=== PATIENT | female | born 1940 | race Caucasian/White ===

== ENCOUNTER 2023-11-24 12:49 | Inpatient (IN) | payer MEDICARE, OTHER, SELFPAY ==
[2023-11-24 08:09] VITALS: BP 135/93
[2023-11-24 08:13] VITALS: BP 135/93; BMI 25.1
[2023-11-24] MEDS: TYLENOL/FEVERALL 650 MG RECTAL (08:27)
--- NOTE | 2023-11-24 09:00 | ED.GENMED ---
History of Present Illness
General
Chief Complaint: Fever
Time Seen by Provider: 11/24/23 08:07
History of Present Illness
History of Present Illness:
83-year-old female with history of hypertension, hyperlipidemia, hypothyroidism presenting from nursing facility for fever and hypoxia. Patient arrives by medics, was hypoxic to the 80s, is not on home O2. Patient limited historian, cough without
difficulty breathing. Denies chest pain. Denies abdominal pain. Unknown sick contacts. No additional history obtained at this time
Phy Exam
Physical Exam
Physical Exam:
General: Cachectic, dry mucous membranes
HEENT: protecting airway
Neck: appears supple
CV: Normal heart rate, regular rhythm, no evidence of cyanosis
Resp: No accessory muscle use, on supplemental O2, rhonchorous breath sounds bilaterally, wet cough
Abd: Soft and non-distended, no tenderness to palpation
Extremities: No deformities, no swelling, no erythema, pulses and sensation intact
Neuro: alert, no focal neurologic deficit
: deferred
Rectal: deferred
Psych: Normal affect
Skin: Intact
Course
Orders/Labs/Results
Orders:
Orders
11/24/23 08:06
Acetaminophen [Tylenol/Feverall] 650 mg .ROUTE .STK-MED ONE
11/24/23 08:16
Straight cath- Treatment ONCE
0.9% Sodium Chloride 1000 ml [Nss] 1,000 ml IV BOLUS
Acetaminophen [Tylenol/Feverall] 650 mg RECTAL NOW STA
11/24/23 08:17
CR Chest - 2 Views Urgent
Comment:
Reason For Exam: cough, hypoxia
11/24/23 08:32
COVID-19 Antigen Urgent
Source: Nasal Swab
Complete Blood Count/With Diff Urgent
Comprehensive Metabolic Panel Urgent
Lactic Acid Q4H
Comment: CANCEL 2nd LACTIC ACID IF 1st LACTIC ACID IS LESS THAN 2
PTT Urgent
Prothrombin Time Urgent
Troponin I Urgent
Blood Culture Urgent
ABHAY Source: Blood/Venous
Specimen Description:
Influenza A+B Rapid Molecular Urgent
ABHAY Source: Nasal Swab
Specimen Description:
11/24/23 08:33
Urinalysis Reflex To Culture Urgent
Date Specimen was Collected: 11/24/23
Time Specimen was Collected: 08:31
11/24/23 09:54
Cefepime HCl [Maxipime] 2,000 mg IV NOW STA
Vancomycin 1 Gram/200 ml [Vancocin] 1 gram in 200 ml IV NOW
11/24/23 11:05
0.9% Sodium Chloride 1000 ml [Nss] 1,000 ml IV BOLUS
11/24/23 12:30
Lactic Acid Q4H
Comment: CANCEL 2nd LACTIC ACID IF 1st LACTIC ACID IS LESS THAN 2
Abnormal Lab Results
11/24/23
08:32
WBC 17.4 H 10^3/uL
(4.8-10.8)
RBC 2.64 L 10^6/uL
(4.20-5.40)
Hgb 9.7 L g/dL
(12.0-16.0)
Hct 28.4 L %
(37.0-47.0)
MCV 107.6 H fL
(81.0-99.0)
MCH 36.7 H pg
(27.0-31.0)
RDW 25.5 H %
(11.5-14.5)
MPV 10.6 H fL
(7.4-10.4)
Abs Immat Gran (auto) 0.2 H 10^3/uL
(0-0.05)
Absolute Neuts (auto) 14.2 H 10^3/uL
(1.4-6.5)
Absolute Monos (auto) 0.8 H 10^3/uL
(0.1-0.6)
Immature Gran % 1.0 H %
(0-0.5)
Neutrophils % 81.8 H %
(42.2-75.2)
Lymphocytes % 12.4 L %
(20.5-51.1)
APTT 21.8 L Sec
(23.4-35.0)
Sodium 132 L mmol/L
(135-145)
BUN 23 H mg/dl
(7-17)
Total Bilirubin 2.7 H mg/dl
(0.2-1.3)
Total Protein 5.4 L g/dl
(6.3-8.2)
Albumin 3.1 L g/dl
(3.5-5.0)
11/24/23 08:32
11/24/23 08:32
Vital Signs
Initial and Last Documented VS:
Initial Vital Signs
Pulse Ox
97
11/24/23 08:03
Last Documented Vital Signs
Temp Pulse Resp BP Pulse Ox
98.8 F 76 19 106/60 99
11/24/23 10:17 11/24/23 10:05 11/24/23 10:05 11/24/23 09:01 11/24/23 10:17
MDM/Problems Addressed
MDM/Problems Addressed:
83-year-old female with history of hypertension, hyperlipidemia, hypothyroidism presenting to the emergency department for hypoxia. Vital signs on arrival significant for fever and tachypnea, on supplemental O2.
On exam, patient stable on supplemental O2, tachypneic with rhonchorous breath sounds bilaterally. In the setting of a fever and respiratory symptoms, concern for sepsis from pulmonary source. Plan for laboratory analysis including lactic acid and
culture. Will obtain chest x-ray imaging. Will start patient on IV fluids. Tylenol administered for fever.
09:50 -chest x-ray is consistent with a right-sided pneumonia. Broad-spectrum antibiotics ordered.
11:00 -labs consistent with leukocytosis, pending lactic acid. Will continue IV fluids. Plan for admission in setting of pneumonia with presenting hypoxia.
*Critical Care Note
Total Time (30-74mins, 75-104mins- exclusive of procedures): Not Applicable
ED Attending Note
-
Portions of this chart may have been created with voice recognition software.� Occasional wrong word or��sound alike� substitutions may have occurred due to the inherent limitations of voice recognition software.
Discharge Plan
Departure
Prescriptions:
No Action
furosemide [Lasix] 40 mg Tablet
40 mg PO DAILY
acetaminophen [Tylenol] 325 mg Tablet
650 mg PO Q6HPRN PRN (Reason: MILD PAIN)
pravastatin 40 mg Tablet
40 mg PO HS
alendronate [Fosamax] 70 mg Tablet
70 mg PO QWEEK
glipizide 5 mg Tablet Extended Release 24hr
5 mg PO DAILY
amlodipine [Norvasc] 5 mg Tablet
5 mg PO DAILY
levothyroxine [Synthroid] 50 mcg Tablet
50 mcg PO DAILY
ferrous sulfate 325 mg (65 mg iron) Tablet
325 mg PO DAILY
albuterol sulfate [ProAir HFA] 90 mcg/actuation Hfa Aerosol Inhaler
2 puff INHALATION R Q6HPRN PRN (Reason: SOB)
losartan-hydrochlorothiazide 50-12.5 mg Tablet
1 tab PO DAILY
insulin lispro [Humalog Pen] 100 unit/mL Insulin Pen
1 sliding scale dose SC AC
escitalopram oxalate [Lexapro] 10 mg Tablet
10 mg PO DAILY
metformin 500 mg Tablet Extended Release 24hr
500 mg PO BID
calcium carbonate-vitamin D3 [Calcium 500 + D] 500 mg-10 mcg (400 unit) Tablet
1 tab PO DAILY
Dulera 100-5 mcg/actuation Hfa Aerosol Inhaler
2 puff INHALATION R BID
Referrals:
Ramirez Phillips MD [Family Provider] -
Interventions
Interventions:
*Risk Screen - Suicide Last Done: 11/24/23 08:13
*General Assessment Last Done: 11/24/23 08:13
*Neglect/Abuse Screening Last Done: 11/24/23 08:13
ED- Fall Risk Assessment Last Done: 11/24/23 09:00
*ED COVID-19 Vaccine History Last Done: 11/24/23 08:13
ED- Neurological Assessment Last Done: 11/24/23 09:00
ED-Skin Assessment Last Done: 11/24/23 09:00
Discharge Date and Time
Print Language: GEORGIAN
[2023-11-24 09:01] VITALS: BP 106/60
[2023-11-24] MEDS: NSS 1000 IV ×2 (09:06→11:19)
[2023-11-24 09:24] LABS: Urine Albumin Negative (Neg - Trace); Urine Bilirubin Negative (Negative); Urine Character Clear (Clear); Urine Color Yellow; Urine Glucose Negative (Negative); Urine Ketone Negative (Negative); Urine Leukocyte Negative (Negative); Urine Nitrite Negative (Negative); Urine Occult Blood Negative (Negative); Urine Urobilinogen 1+ (Neg - 1+)
[2023-11-24 09:27] LABS: ALT (SGPT) 11 U/L (0-35); AST (SGOT) 20 U/L (14-36); Albumin 3.1 g/dl (3.5-5.0); Alkaline Phosphatase 61 U/L (38-126); Blood Urea Nitrogen 23 mg/dl (7-17); Carbon Dioxide 29 mmol/L (22-30); Chloride 99 mmol/L (98-107); Estimated Creatinine Clearance 44 ml/min; Glucose 81 mg/dl (70-99); Potassium 3.6 mmol/L (3.5-5.1); Sodium 132 mmol/L (135-145); Total Bilirubin 2.7 mg/dl (0.2-1.3); Total Protein 5.4 g/dl (6.3-8.2); eGFR > 60.00
[2023-11-24 09:30] LABS: INR 1.16; Lactic Acid 1.8 mmol/L (0.7-2.0); PT 14.6 Sec (11.4-14.6)
[2023-11-24 09:34] LABS: COVID-19 Antigen Negative (Negative)
[2023-11-24 09:37] LABS: Troponin I 0.013 ng/ml
[2023-11-24] MEDS: MAXIPIME 2000 MG IV (09:59)
[2023-11-24] MEDS: VANCOCIN 200 IV (09:59)
[2023-11-24 10:30] LABS: % Basophils 0.1 % (0-2); % Lymphocytes 12.4 % (20.5-51.1); % Monocytes 4.7 % (1.7-9.3); % Neutrophils 81.8 % (42.2-75.2); Absolute Immature Granulocytes 0.2 10^3/uL (0-0.05); Absolute Lymphocytes 2.2 10^3/uL (1.2-3.4); Absolute Monocytes 0.8 10^3/uL (0.1-0.6); Absolute Neutrophils 14.2 10^3/uL (1.4-6.5); Hematocrit 28.4 % (37.0-47.0); Hemoglobin 9.7 g/dL (12.0-16.0); Mean Corp Hgb Conc. 34.2 g/dL (33.0-37.0); Mean Corpuscular Hgb 36.7 pg (27.0-31.0); Mean Corpuscular Volume 107.6 fL (81.0-99.0); Mean Platelet Volume 10.6 fL (7.4-10.4); Nucleated Red Blood Cells % 0.2 %; Platelet Count 161 10^3/uL (130-400); Red Blood Cell Count 2.64 10^6/uL (4.20-5.40); Red Cell Dist. Width 25.5 % (11.5-14.5); White Blood Cell Count 17.4 10^3/uL (4.8-10.8)
[2023-11-24 10:32] LABS: APTT 21.8 Sec (23.4-35.0)
--- NOTE | 2023-11-24 10:47 | PHANOTE ---
MED REC NOTE- CALLED [facility] AT [phone] [address], PATIENT MISSING PAGES 5 6 7 OF MEDICATION LIST. WAIT FOR FAX FROM [address] [address]
--- NOTE | 2023-11-24 12:35 | HPS.HSE ---
Family Physician
-
Family Physician: Ramirez Phillips MD
Chief Complaint
-
hypoxia
History of Present Illness
83yo [place]er speaking F with Hx of asthma, ITP on steroids, HUS, HTN, DM, hypothyroidism brought from [facility] with hypoxia, found leukocytosis and RUL pneumonia. Patient is demented and can not provide reliable Hx.
Medical History
Past Medical History
Past Medical History: Reports Other
Additional Past Medical History:
see above
Past Surgical History: Reports Cholecystectomy
Social History
Unable to obtain full social history at this time due to: Dementia
Family History
Family History: Not pertinent
Allergies / Home Medications
Allergies reflects when Allergies were last updated in [employer].
Home Medications with original date entered in [employer]
Allergy/Medication List:
Allergies
Allergy/AdvReac Type Severity Reaction Status Date / Time
No Known Allergies Allergy Verified 11/24/23 08:11
Home Medications
acetaminophen 325 mg tablet (Tylenol) 650 mg PO Q6HPRN PRN MILD PAIN 11/24/23
amlodipine 5 mg tablet (Norvasc) 5 mg PO DAILY 11/24/23
bisacodyl 10 mg rectal suppository (Dulcolax (bisacodyl)) 10 mg [place] DAILYPRN PRN IF NO BM AFTR MOM 11/24/23
calcium carbonate 500 mg-vitamin D3 10 mcg (400 unit) tablet (Calcium 500 + D) 1 tab PO DAILY 11/24/23
cholecalciferol (vitamin D3) 50 mcg (2,000 unit) tablet (Vitamin D3) 50 mcg PO DAILY 11/24/23
escitalopram oxalate 10 mg tablet (Lexapro) 10 mg PO DAILY 11/24/23
ferrous sulfate 325 mg (65 mg iron) tablet 325 mg PO DAILY 11/24/23
folic acid 1 mg tablet 2 mg PO DAILY 11/24/23
furosemide 40 mg tablet (Lasix) 40 mg PO DAILYPRN PRN FLUID RETENSION 11/24/23
insulin glargine 100 unit/mL subcutaneous solution (Lantus U-100 Insulin) 15 unit SC HS 11/24/23
insulin lispro 100 unit/mL subcutaneous pen 1 sliding scale dose SC AC 11/24/23
levothyroxine 50 mcg tablet (Synthroid) 50 mcg PO DAILY 11/24/23
losartan 50 mg-hydrochlorothiazide 12.5 mg tablet 1 tab PO DAILY 11/24/23
magnesium hydroxide 400 mg/5 mL oral suspension (Milk of Magnesia) 2,400 mg PO [id number] PRN CONSTIPATION 11/24/23
mometasone-formoterol HFA 100 mcg-5 mcg/actuation aerosol inhaler (Dulera) 2 puff inhalation R BID 11/24/23
pravastatin 40 mg tablet 40 mg PO HS 11/24/23
prednisone 10 mg tablet 40 mg PO DIRECTED 11/24/23
risperidone 1 mg tablet (Risperdal) 1 mg PO HS 11/24/23
vitamin A 2,400 mcg capsule 3,000 mcg PO DAILY 11/24/23
Review of Systems
-
Unable to obtain full review of systems at this time due to: Dementia
History Source: Patient
Physical Exam
Vital Signs
Vital Signs
Temp Pulse Resp BP Pulse Ox
98.8 F 79 27 106/60 100
11/24/23 10:17 11/24/23 11:30 11/24/23 11:30 11/24/23 09:01 11/24/23 11:30
Physical Exam
General: No Apparent Distress
HEENT: Moist mucous membranes
Respiratory: Clear; No Wheezes
Cardiac: S1/S2 and Regular Rhythm
GI: Soft, Non Tender and Non Distended
Musculoskeletal: No Clubbing, No Cyanosis and No Edema
Skin: Warm
Neuro: Awake, Alert, Oriented and AO x 3
Psych: Calm
Laboratory Results
-
11/24/23 08:32
11/24/23 08:32
Laboratory Results
PT 14.6 Sec (11.4-14.6) 11/24/23 08:32
INR 1.16 11/24/23 08:32
APTT 21.8 Sec (23.4-35.0) L 11/24/23 08:32
Lactic Acid Cancelled 11/24/23 12:30
Total Bilirubin 2.7 mg/dl (0.2-1.3) H 11/24/23 08:32
AST 20 U/L (14-36) 11/24/23 08:32
ALT 11 U/L (0-35) 11/24/23 08:32
Alkaline Phosphatase 61 U/L (38-126) 11/24/23 08:32
Troponin I 0.013 ng/ml 11/24/23 08:32
Data Reviewed
-
Diagnostic Radiology: Report Reviewed by me
Impression/Plan
-
A/P:
#Acute hypoxic insufficiecny 2/2 Severe RUL pneumonia with unspecified organism
Ceftriaxone/Doxy
Check sputum Cx if possible
Wean off O2
Check Legionella and S.pneumonia urinary Ag
Bcx
COVID-19 neg
#Asthma, not in exacerbations
COnt bronchodilators
Follow clinically
#DM type 2 with neuropathy
DM diet (was on regular consistency in SNF) , Insulin SS, Hgb A1c
Cont Lantus
#CHF unspecified
#Hypothyroidism
#Dementia unspecified
#Essential HTN
#Chronic constipation
#Anxiet d/o
#HLD
Chck TSH
cont home meds
Furosemide to cont PRN - watch daily weights
#Anemia
#ITP
macrocytic
check B12, folate
follow CBC
cont steroids: STARTING 11/21/23-08/16/24 TSKE 40MG DAILY, THEN 30MG DAILY ON DAY 11/28/23-12/05/23 [id number] DAILY ON DAY 12/05/23-12/12/23 THEN 10MG DAILY ON DAYS 12/12/23-12/19/23
DVT ppx Hep
Full code (as per discussion with the patient)
I have spent at least 78min admitting the patient, reviewing chart, test results. COuld not reach daughter with the number on file
[2023-11-24 15:00] VITALS: BP 112/63
[2023-11-24] MEDS: STERILE WATER FOR INJECTION 10 ML IV (15:00)
[2023-11-24] MEDS: VIBRAMYCIN 100 MG PO ×2 (15:00→21:39)
[2023-11-24] MEDS: ROCEPHIN 1000 MG IV (15:01)
[2023-11-24] MEDS: DELTASONE 40 MG PO (15:03)
--- NOTE | 2023-11-24 17:07 | PTCARENOTE ---
Pt's daughter expressed that she would like her mom discharged back to [place] as soon as possible and that they can administer IV antibiotics there;
[2023-11-24 17:28] LABS: Glucose - Point of Care 227 mg/dl (70-99)
[2023-11-24] MEDS: HEPARIN 5000 UNITS SC ×2 (17:59→23:02)
[2023-11-24] MEDS: NOVOLOG FLEXPEN-LOW RESISTANCE 2 UNITS SC (18:00)
[2023-11-24 18:12] LABS: TSH Reflex To Free T4 3.72 uIU/ml (0.47-4.68)
[2023-11-24] MEDS: SYMBICORT 80/4.5 MCG INHALER 2 PUFF INH (19:58)
[2023-11-24] MEDS: PRAVACHOL 40 MG PO (21:03)
[2023-11-24] MEDS: RISPERDAL 1 MG PO (21:03)
[2023-11-24 21:13] LABS: Glucose - Point of Care 350 mg/dl (70-99)
[2023-11-24] MEDS: VIBRAMYCIN PO (21:36)
[2023-11-24] MEDS: LANTUS 0.15 UNITS SC (21:39)
[2023-11-24] MEDS: NOVOLOG FLEXPEN 5 UNITS SC (22:20)
[2023-11-24 23:00] VITALS: BP 130/65
[2023-11-25] MEDS: SYNTHROID 50 MCG PO (05:20)
[2023-11-25 05:26] VITALS: BMI 22.8
[2023-11-25 07:45] VITALS: BP 142/58
[2023-11-25 07:49] LABS: Glucose - Point of Care 110 mg/dl (70-99)
[2023-11-25 08:03] LABS: ALT (SGPT) 11 U/L (0-35); AST (SGOT) 20 U/L (14-36); Albumin 2.7 g/dl (3.5-5.0); Alkaline Phosphatase 61 U/L (38-126); Blood Urea Nitrogen 24 mg/dl (7-17); Calcium 8.2 mg/dl (8.4-10.2); Carbon Dioxide 27 mmol/L (22-30); Chloride 105 mmol/L (98-107); Estimated Creatinine Clearance 51 ml/min; Glucose 106 mg/dl (70-99); Sodium 134 mmol/L (135-145); Total Bilirubin 1.9 mg/dl (0.2-1.3); Total Protein 4.8 g/dl (6.3-8.2); eGFR > 60.00
[2023-11-25] MEDS: SYMBICORT 80/4.5 MCG INHALER 2 PUFF INH ×2 (08:20→19:41)
[2023-11-25 09:12] LABS: Vitamin B12 663 pg/ml (239-931)
[2023-11-25 09:23] VITALS: BP 127/57; O2SAT 96
[2023-11-25 09:28] LABS: % Basophils 0.1 % (0-2); % Immature Granulocytes 0.4 % (0-0.5); % Lymphocytes 26.6 % (20.5-51.1); % Monocytes 5.9 % (1.7-9.3); Absolute Lymphocytes 2.6 10^3/uL (1.2-3.4); Absolute Monocytes 0.6 10^3/uL (0.1-0.6); Absolute Neutrophils 6.6 10^3/uL (1.4-6.5); Hemoglobin 8.3 g/dL (12.0-16.0); Mean Corp Hgb Conc. 34.6 g/dL (33.0-37.0); Mean Corpuscular Hgb 32.9 pg (27.0-31.0); Mean Corpuscular Volume 95.2 fL (81.0-99.0); Mean Platelet Volume 10.7 fL (7.4-10.4); Nucleated Red Blood Cells % 0.4 %; Platelet Count 162 10^3/uL (130-400); Red Blood Cell Count 2.52 10^6/uL (4.20-5.40); Red Cell Dist. Width 21.3 % (11.5-14.5); White Blood Cell Count 9.8 10^3/uL (4.8-10.8)
[2023-11-25 10:20] LABS: Glycohemoglobin (HgbA1c) 3.5 % (4.0-5.6)
[2023-11-25] MEDS: NOVOLOG FLEXPEN-LOW RESISTANCE SC (10:24)
[2023-11-25] MEDS: HEPARIN 5000 UNITS SC ×3 (10:25→23:44)
[2023-11-25] MEDS: HYZAAR 50-12.5 1 TAB PO (10:25)
[2023-11-25] MEDS: DELTASONE 40 MG PO (10:26)
[2023-11-25] MEDS: VIBRAMYCIN 100 MG PO ×2 (10:26→19:47)
[2023-11-25] MEDS: FEOSOL 325 MG PO (10:27)
[2023-11-25] MEDS: FOLVITE 2 MG PO (10:27)
[2023-11-25] MEDS: LEXAPRO 10 MG PO (10:27)
[2023-11-25] MEDS: NORVASC 5 MG PO (10:28)
[2023-11-25] MEDS: VITAMIN D3 (cholecalciferol) 50 MCG PO (10:28)
[2023-11-25] MEDS: OSCAL 500 + D 500 MG PO (10:28)
[2023-11-25 11:35] VITALS: BP 138/99
[2023-11-25 12:13] LABS: Glucose - Point of Care 155 mg/dl (70-99)
--- NOTE | 2023-11-25 12:32 | CM ---
Addendum entered by Ching Harrison 11/25/23 12:42:
CM spoke with Domenico from [facility], reviewed therapy notes, confirmed patient is at baseline, will accept return of LTC resident when stable for discharge.
Original Note:
CM reviewed chart, patient LTC resident from [facility]. Referral placed in [facility], [facility] confirmed they can accept LTC resident back when clear for discharge. Per PT note, patient ambulating with RW, PT/OT recommending no skilled need as
patient appears to be at baseline. Patient PCP Ramirez Phillips, pharmacy [facility]. CM will continue to follow for all discharge planning needs.
Plan; return to [facility] LT when medically stable.
[2023-11-25] MEDS: NOVOLOG FLEXPEN-LOW RESISTANCE 1 UNITS SC (13:36)
[2023-11-25] MEDS: STERILE WATER FOR INJECTION 10 ML IV (13:37)
[2023-11-25] MEDS: ROCEPHIN 1000 MG IV (13:38)
--- NOTE | 2023-11-25 13:42 | PTOTSP ---
Dysphagia Evaluation
Patient is at an elevated risk for dysphagia given current respiratory status (i.e., accessory muscle use when breathing) while admitted with severe RUL PNA, with PMH of dementia, and given missing dentition (few upper teeth with no visible molars).
Oral stage differences noted (i.e., prolonged but functional chewing/oral transfers). No immediate coughing observed. Cannot rule out silent aspiration bedside.
Recommend:
1. Regular (order soft/moist foods), Thin Liquids
2. Medications - as best tolerated
3. Strategies: upright to 90 degrees, small sips/bites, slow rate, upright to 30 degrees after PO intake
4. Oral care 3x daily
5. Video swallow study to rule out dysphagia/silent aspiration as cause of current right sided PNA
[2023-11-25 15:45] VITALS: BP 114/76
[2023-11-25 17:30] LABS: Glucose - Point of Care 365 mg/dl (70-99)
[2023-11-25] MEDS: NOVOLOG FLEXPEN-LOW RESISTANCE 5 UNITS SC (17:33)
--- NOTE | 2023-11-25 18:32 | W.PN.HOSP.TC ---
Today's Communication/Plan
-
VSE.
Antibiotics for aspiration
Assessment / Plan
Assessment / Plan
Impression:
Acute hypoxic respiratory insufficiency secondary to right upper lobe pneumonia
Suspect aspiration.
Mild hyponatremia
Conditions prior to admission
Asthma without exacerbation
Diabetes type 2 with neuropathy/IDDM.
CHF unspecified
Hypothyroidism
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
Essential hypertension.
Dyslipidemia.
Recent diagnosis of ITP on steroid taper
Chronic anemia.
Plan:
Right upper lobe pneumonia with hypoxia.
Speech and swallow evaluation noted and diet advanced with aspiration precautions
Strong clinical suspicion for aspiration. Will check VSE.
Continue antibiotics: Ceftriaxone/doxycycline
Attempt to wean off oxygen.
CHF unspecified.
Essential hypertension.
Continue preadmission regimen including Norvasc, Cozaar. Discontinue HCTZ given mild hyponatremia. Monitor volume status closely.
Mild hyponatremia
Stop HCTZ.
Check TSH.
Follow BMP
Recent diagnosis of ITP per records
Continue steroid taper.
IDDM. Records.
'Keep steroid dependent.
Hemoglobin A1c 3.5.
Continue Lantus
Continue basal bolus protocol with serial Accu-Cheks.
Monitor blood glucose with steroid taper.
Physical therapy assessment
Full code
Anticipated Discharge: 24 - 48 hours
Subjective/Interval History
-
Date of Service: November 25, 2023
Objective Data
-
Labs:
Laboratory Results
11/25/23
07:12
WBC 9.8
Hgb 8.3 L
Hct 24.0 L
Plt Count 162
Sodium 134 L
Potassium 4.0
Chloride 105
Carbon Dioxide 27
BUN 24 H
Creatinine 0.5 L
Glucose 106 H
Calcium 8.2 L
Total Bilirubin 1.9 H
AST 20
ALT 11
Alkaline Phosphatase 61
Vital Signs:
Vital Signs
Temp Pulse Resp BP Pulse Ox
97.7 F 73 20 114/76 96
11/25/23 15:45 11/25/23 15:45 11/25/23 15:45 11/25/23 15:45 11/25/23 15:45
I&O
11/24/23 11/25/23 11/26/23
06:59 06:59 06:59
Intake Total 600 / 600
Balance 600 / 600
Physical Exam
-
General: Well Developed and No Apparent Distress
HEENT: Normocephalic, Atraumatic and Moist Mucous Membranes
Respiratory: Rhonchi (Course rhonchi)
Cardiac: Regular Rhythm and S1/S2; Negative Murmur, Rub or Gallop
GI: Soft, Nontender, Nondistended and Normal Bowel Sounds; Negative Organomegaly
Rectal: Deferred by Provider
Musculoskeletal: No Clubbing, No Cyanosis and No Edema
Skin: Negative Rash
Neuro: Nonfocal/Grossly Intact
[2023-11-25 21:13] LABS: Glucose - Point of Care 409 mg/dl (70-99)
[2023-11-25] MEDS: RISPERDAL 1 MG PO (21:56)
[2023-11-25] MEDS: PRAVACHOL 40 MG PO (21:56)
[2023-11-25 22:21] LABS: Glucose 345 mg/dl (70-99)
[2023-11-25] MEDS: LANTUS 0.15 UNITS SC (22:35)
[2023-11-25] MEDS: NOVOLOG FLEXPEN 4 UNITS SC (22:35)
[2023-11-25 22:41] VITALS: BP 136/50
[2023-11-26 03:01] LABS: Glucose - Point of Care 203 mg/dl (70-99)
[2023-11-26] MEDS: SYNTHROID 50 MCG PO (05:28)
[2023-11-26 06:00] VITALS: BMI 22.2
[2023-11-26 07:15] VITALS: BP 147/61
[2023-11-26] MEDS: SYMBICORT 80/4.5 MCG INHALER 2 PUFF INH ×2 (08:02→19:48)
[2023-11-26 08:13] LABS: Blood Urea Nitrogen 22 mg/dl (7-17); Calcium 8.2 mg/dl (8.4-10.2); Carbon Dioxide 29 mmol/L (22-30); Chloride 103 mmol/L (98-107); Estimated Creatinine Clearance 51 ml/min; Glucose 100 mg/dl (70-99); Potassium 3.8 mmol/L (3.5-5.1); Sodium 135 mmol/L (135-145); eGFR > 60.00
[2023-11-26 09:07] LABS: % Basophils 0.1 % (0-2); % Immature Granulocytes 0.7 % (0-0.5); % Monocytes 6.1 % (1.7-9.3); % Neutrophils 57.1 % (42.2-75.2); Absolute Immature Granulocytes 0.1 10^3/uL (0-0.05); Absolute Monocytes 0.5 10^3/uL (0.1-0.6); Absolute Neutrophils 4.7 10^3/uL (1.4-6.5); Hematocrit 21.6 % (37.0-47.0); Hemoglobin 7.7 g/dL (12.0-16.0); Mean Corp Hgb Conc. 35.6 g/dL (33.0-37.0); Mean Corpuscular Hgb 34.7 pg (27.0-31.0); Mean Corpuscular Volume 97.3 fL (81.0-99.0); Mean Platelet Volume 10.4 fL (7.4-10.4); Nucleated Red Blood Cells % 0 %; Platelet Count 152 10^3/uL (130-400); Red Blood Cell Count 2.22 10^6/uL (4.20-5.40); Red Cell Dist. Width 21.6 % (11.5-14.5); White Blood Cell Count 8.3 10^3/uL (4.8-10.8)
[2023-11-26] MEDS: NOVOLOG FLEXPEN-LOW RESISTANCE SC (10:16)
[2023-11-26] MEDS: FEOSOL 325 MG PO (10:17)
[2023-11-26] MEDS: DELTASONE 40 MG PO (10:17)
[2023-11-26] MEDS: COZAAR 50 MG PO (10:17)
[2023-11-26] MEDS: LEXAPRO 10 MG PO (10:18)
[2023-11-26] MEDS: VIBRAMYCIN 100 MG PO (10:18)
[2023-11-26] MEDS: OSCAL 500 + D 500 MG PO (10:19)
[2023-11-26] MEDS: FOLVITE 2 MG PO (10:19)
[2023-11-26] MEDS: VITAMIN D3 (cholecalciferol) 50 MCG PO (10:19)
[2023-11-26] MEDS: NORVASC 5 MG PO (10:20)
[2023-11-26] MEDS: HEPARIN 5000 UNITS SC ×2 (10:20→17:45)
[2023-11-26] MEDS: VIBRAMYCIN PO (10:37)
--- NOTE | 2023-11-26 12:28 | PN.CDI ---
CDI
- -
CDI:
Physician Documentation Request
Admit Date: 11/24/23 12:49
Dear Doctor Oracio,
Patient admitted with RUL pneumonia.
11/24 PN,....right upper lobe pneumonia...Suspect aspiration....Continue antibiotics: Ceftriaxone/doxycycline.'
On admission, WBC 17.4 and T max 102.
Please clarify which of the following most accurately describes the status of the patient's infection:
Sepsis, POA
Aspiration pneumonia only
Other
Sepsis
- Systemic manifestations of infection, with 2 or more SIRS criteria which include:
- Fever >100.4 degrees F or hypothermia < 96.8 degrees F
- Leukocytosis - WBC > 12,000 or leukopenia - WBC < 4,000 or > 10% bands
- Tachycardia > 90 beats per minute
- Tachypnea - RR > 20 breaths per minute or PaCO2 , 32mmHg
Source: Merck Manual 2013
- Indicate the known or suspected organism
- Indicate the known or suspected underlying infection, such as aspiration pneumonia
Localized Infection Only, Without Systemic Illness
- indicate the site/source, such as aspiration pneumonia
Other
Unable to Determine
Use of terms such as suspected, likely, concern for, or probable (associated with a specific diagnosis that is being evaluated, monitored, or treated as if it exists) are acceptable and can be coded in the inpatient setting, when documented at the
time of discharge.
Thank you,
Preeti COATS,RN,CCDS
CDI Specialist
Available via tiger text
Please use your independent medical judgment in providing your response.
--- NOTE | 2023-11-26 12:28 | CM ---
CM reviewed with Hospitalist, likely discharge tomorrow. Update sent through [facility] to [facility]. CM spoke with patients daughter, Ana, discussed likely discharge tomorrow. Daughter agreeable, reports patient will need ambulance
transport, forms placed in chart. IMM reviewed with Ana via telephone, placed in chart. CM will continue to follow for all discharge planning needs.
Plan: [facility],tomorrow, ambulance transport forms placed on chart.
Report: [phone]
[2023-11-26 12:34] LABS: Glucose - Point of Care 136 mg/dl (70-99)
[2023-11-26 12:34] LABS: Glucose - Point of Care 91 mg/dl (70-99)
[2023-11-26] MEDS: PROTONIX 40 MG PO (13:00)
[2023-11-26] MEDS: UNASYN IV ×2 (13:01→17:51)
[2023-11-26] MEDS: NOVOLOG FLEXPEN-LOW RESISTANCE 1 UNITS SC (13:01)
[2023-11-26 13:10] LABS: Glucose - Point of Care 198 mg/dl (70-99)
--- NOTE | 2023-11-26 15:08 | PTOTSP ---
Video Swallow Study
Summary: Patient with at least mild oral stage and moderate pharyngeal dysphagia. There was aspiration with an effective cough response with consecutive drinking of thin liquids via cup and myranda silent aspiration without a cough response with
consecutive drinking of mildly thick liquids via straw. See patient care note for details.
Recommend:
1. Regular, Mildly Thick Liquids via single cup sips
2. Medications - in puree
3. Strategies: full supervision/assistance, upright position, small single sips/bites, slow rate, no straws
4. Oral care 3x daily
5. Aspiration Risk Hydration Protocol - unlimited water in between meals after oral care, with supervision
6. Dysphagia therapy at the acute care level and after D/C at this time. Consider trial of Provale cup with thin liquids at next level of care.
[2023-11-26 15:24] VITALS: BP 105/56
--- NOTE | 2023-11-26 15:44 | W.PN.HOSP.TC ---
Today's Communication/Plan
-
Consolidate antibiotics to Unasyn to cover aspiration pneumonia
Wean off oxygen
Increase activity
Continue steroid taper
Follow hemoglobin
Continue PPI
Assessment / Plan
Assessment / Plan
Impression:
Acute hypoxic respiratory insufficiency secondary to right upper lobe pneumonia
Aspiration pneumonia with right upper lobe infiltrate
Mild hyponatremia
Conditions prior to admission
Asthma without exacerbation
Diabetes type 2 with neuropathy/IDDM.
CHF unspecified
Hypothyroidism
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
Essential hypertension.
Dyslipidemia.
Recent diagnosis of ITP on steroid taper
Chronic anemia.
Plan:
Right upper lobe pneumonia with hypoxia secondary to aspiration
Speech and swallow evaluation noted and diet advanced with aspiration precautions
VSE on 11/25 confirms aspiration syndrome.
Diet has been adjusted with aspiration precaution.
Consolidate antibiotics to Unasyn with plan to transition to Augmentin to complete 7 to 10-day course of therapy
Wean off oxygen
CHF unspecified.
Essential hypertension.
Continue preadmission regimen including Norvasc, Cozaar. Discontinue HCTZ given mild hyponatremia. Monitor volume status closely.
Mild hyponatremia
Stop HCTZ.
TSH within normal limits
Follow BMP
Recent diagnosis of ITP per records
Continue steroid taper.
Chronic anemia with trending down hemoglobin 9.7�7.7.
Follow CBC
Continue PPI while on corticosteroids
Heme check stools
IDDM. Records.
'Keep steroid dependent.
Hemoglobin A1c 3.5.
Continue Lantus
Continue basal bolus protocol with serial Accu-Cheks.
Monitor blood glucose with steroid taper.
Physical therapy assessment
Full code
Anticipated Discharge: 24 - 48 hours
Subjective/Interval History
-
Date of Service: November 26, 2023
Objective Data
-
Labs:
Laboratory Results
11/26/23
05:40
WBC 8.3
Hgb 7.7 L
Hct 21.6 L
Plt Count 152
Sodium 135
Potassium 3.8
Chloride 103
Carbon Dioxide 29
BUN 22 H
Creatinine 0.6
Glucose 100 H
Calcium 8.2 L
Vital Signs:
Vital Signs
Temp Pulse Resp BP Pulse Ox
99.7 F 74 16 105/56 97
11/26/23 15:24 11/26/23 15:24 11/26/23 15:24 11/26/23 15:24 11/26/23 15:24
I&O
11/25/23 11/26/23 11/27/23
06:59 06:59 06:59
Intake Total 600 / 600
Balance 600 / 600
Physical Exam
-
General: Well Developed and No Apparent Distress
HEENT: Normocephalic, Atraumatic and Moist Mucous Membranes
Respiratory: Rhonchi (Course rhonchi)
Cardiac: Regular Rhythm and S1/S2; Negative Murmur, Rub or Gallop
GI: Soft, Nontender, Nondistended and Normal Bowel Sounds; Negative Organomegaly
Rectal: Deferred by Provider
Musculoskeletal: No Clubbing, No Cyanosis and No Edema
Skin: Negative Rash
Neuro: Nonfocal/Grossly Intact
[2023-11-26 16:35] LABS: Glucose - Point of Care 315 mg/dl (70-99)
[2023-11-26] MEDS: NOVOLOG FLEXPEN-LOW RESISTANCE 4 UNITS SC (17:47)
[2023-11-26 21:21] LABS: Glucose - Point of Care 342 mg/dl (70-99)
[2023-11-26] MEDS: RISPERDAL 1 MG PO (21:57)
[2023-11-26] MEDS: PRAVACHOL 40 MG PO (22:06)
[2023-11-26] MEDS: LANTUS 0.15 UNITS SC (22:06)
[2023-11-26 23:12] VITALS: BP 144/88
[2023-11-27] MEDS: HEPARIN 5000 UNITS SC ×3 (00:19→15:39)
[2023-11-27] MEDS: UNASYN IV ×3 (00:19→13:20)
[2023-11-27 06:00] VITALS: BMI 22.4
[2023-11-27] MEDS: SYNTHROID 50 MCG PO (06:03)
[2023-11-27 07:40] VITALS: BP 133/51
[2023-11-27 07:46] LABS: Glucose - Point of Care 97 mg/dl (70-99)
[2023-11-27] MEDS: SYMBICORT 80/4.5 MCG INHALER 2 PUFF INH (08:08)
[2023-11-27] MEDS: DELTASONE 40 MG PO (09:04)
[2023-11-27] MEDS: FOLVITE 2 MG PO (09:05)
[2023-11-27] MEDS: COZAAR 50 MG PO (09:05)
[2023-11-27] MEDS: PROTONIX 40 MG PO (09:05)
[2023-11-27] MEDS: LEXAPRO 10 MG PO (09:05)
[2023-11-27] MEDS: FEOSOL 325 MG PO (09:06)
[2023-11-27] MEDS: OSCAL 500 + D 500 MG PO (09:06)
[2023-11-27] MEDS: VITAMIN D3 (cholecalciferol) 50 MCG PO (09:06)
[2023-11-27] MEDS: NOVOLOG FLEXPEN-LOW RESISTANCE SC (09:07)
[2023-11-27] MEDS: NORVASC 5 MG PO (09:07)
[2023-11-27 10:26] LABS: Blood Urea Nitrogen 16 mg/dl (7-17); Calcium 8.2 mg/dl (8.4-10.2); Carbon Dioxide 26 mmol/L (22-30); Chloride 104 mmol/L (98-107); Estimated Creatinine Clearance 44 ml/min; Glucose 165 mg/dl (70-99); Potassium 3.8 mmol/L (3.5-5.1); Sodium 134 mmol/L (135-145); eGFR > 60.00
[2023-11-27 12:01] LABS: % Immature Granulocytes 1.1 % (0-0.5); % Lymphocytes 33.7 % (20.5-51.1); % Monocytes 4.8 % (1.7-9.3); % Neutrophils 60.4 % (42.2-75.2); Absolute Immature Granulocytes 0.1 10^3/uL (0-0.05); Absolute Lymphocytes 2.4 10^3/uL (1.2-3.4); Absolute Monocytes 0.3 10^3/uL (0.1-0.6); Absolute Neutrophils 4.3 10^3/uL (1.4-6.5); Hematocrit 21.9 % (37.0-47.0); Hemoglobin 8.1 g/dL (12.0-16.0); Mean Corpuscular Hgb 43.8 pg (27.0-31.0); Mean Corpuscular Volume 118.4 fL (81.0-99.0); Mean Platelet Volume 10.6 fL (7.4-10.4); Nucleated Red Blood Cells % 0.4 %; Platelet Count 183 10^3/uL (130-400); Red Blood Cell Count 1.85 10^6/uL (4.20-5.40); White Blood Cell Count 7.1 10^3/uL (4.8-10.8)
[2023-11-27 12:03] LABS: Glucose - Point of Care 210 mg/dl (70-99)
[2023-11-27] MEDS: NOVOLOG FLEXPEN-LOW RESISTANCE 2 UNITS SC (13:19)
--- NOTE | 2023-11-27 13:49 | W.DS.TRANS ---
DC Summary - Finishing Frame Runner
-
Discharge Instructions:
Discharge Diagnosis/Procedures Aspiration pneumonia.
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
Diet Diabetic, Carb Controlled,Other diet
Additional Diets 1. Regular, Mildly Thick Liquids via single cup
sips
2. Medications - in puree
3. Strategies: full supervision/assistance,
upright position, small single sips/bites, slow
rate, no straws
4. Oral care 3x daily
5. Aspiration Risk Hydration Protocol -
unlimited water in between meals after oral care
, with supervision
6. Dysphagia therapy at the acute care level and
after D/C at this time. Consider trial of
Provale cup with thin liquids at next level of
care.
Activity No restrictions
Instructions:
Stand-Alone Forms:
Changes to Home Medications: Yes
Discharge Medications:
DC Medications w/original date entered in [employer]
acetaminophen 325 mg tablet (Tylenol) 650 mg PO Q6HPRN PRN MILD PAIN 11/24/23
amlodipine 5 mg tablet (Norvasc) 5 mg PO DAILY Blood Pressure 11/24/23
bisacodyl 10 mg rectal suppository (Dulcolax (bisacodyl)) 10 mg [place] DAILYPRN PRN IF NO BM AFTR MOM 11/24/23
calcium carbonate 500 mg-vitamin D3 10 mcg (400 unit) tablet (Calcium 500 + D) 1 tab PO DAILY Supplement 11/24/23
cholecalciferol (vitamin D3) 50 mcg (2,000 unit) tablet (Vitamin D3) 50 mcg PO DAILY Supplement 11/24/23
escitalopram oxalate 10 mg tablet (Lexapro) 10 mg PO DAILY depression/anxiety 11/24/23
ferrous sulfate 325 mg (65 mg iron) tablet 325 mg PO DAILY Supplement 11/24/23
folic acid 1 mg tablet 2 mg PO DAILY Supplement 11/24/23
furosemide 40 mg tablet (Lasix) 40 mg PO DAILYPRN PRN fluid retention 11/24/23
insulin glargine 100 unit/mL subcutaneous solution (Lantus U-100 Insulin) 15 unit SC HS diabetes 11/24/23
insulin lispro 100 unit/mL subcutaneous pen 1 sliding scale dose SC AC diabetes 11/24/23
levothyroxine 50 mcg tablet (Synthroid) 50 mcg PO DAILY Thyroid 11/24/23
magnesium hydroxide 400 mg/5 mL oral suspension (Milk of Magnesia) 2,400 mg PO [id number] PRN CONSTIPATION 11/24/23
mometasone-formoterol HFA 100 mcg-5 mcg/actuation aerosol inhaler (Dulera) 2 puff inhalation R BID Lung/Breathing Issues 11/24/23
pravastatin 40 mg tablet 40 mg PO HS High Cholesterol 11/24/23
risperidone 1 mg tablet (Risperdal) 1 mg PO HS Mental Health/Anxiety 11/24/23
vitamin A 2,400 mcg capsule 3,000 mcg PO DAILY Supplement 11/24/23
amoxicillin 875 mg-potassium clavulanate 125 mg tablet 1 tab PO Q12H #14 tabs 11/27/23
losartan 50 mg tablet 50 mg PO DAILY #30 tabs 11/27/23
prednisone 10 mg tablet 40 mg (4 x 10 mg) PO DAILY #60 tabs 11/27/23
Home Medication Changes
Additional 7 days of antibiotics
Pending Results: No
--- NOTE | 2023-11-27 14:11 | CM ---
Addendum entered by Ching Harrison 11/27/23 14:19:
Plan:
Plan: [facility], ambulance transport 4:00 p.m.
Report: [phone]

Original Note:
CM reviewed chart, patient for discharge today, return to [facility]. Ambulance transport scheduled for 4:00 p.m. CM spoke with patients daughter, Ana, to provide update. [facility] aware of transportation time and patient return. CM
will continue to follow for all discharge planning needs.
Plan: [facility],tomorrow, ambulance transport 4:00 p.m.
Report: [phone]
[2023-11-27 15:10] VITALS: BP 140/59
[2023-11-27 17:00] LABS: Anisocytosis 2+; Macrocytosis 1+; Microcytosis 2+; Normal RBC Morphology No; Polychromasia 1+; Tear Drop Red Blood Cells 1+
== END 2023-11-27 17:11 | DRG 178 ==
LOC: 4 WEST ACU 12:49
PROVIDERS: ADMITTING PHYSICIAN Internal Medicine; ATTENDING PHYSICIAN Internal Medicine; EMERGENCY PHYSICIAN Student in an Organized Health Care Education/Training Program; FAMILY PHYSICIAN Internal Medicine
DX: J69.0 Pneumonitis due to inhalation of food and vomit (principal); D59.10 Autoimmune hemolytic anemia, unspecified; D69.3 Immune thrombocytopenic purpura; E87.1 Hypo-osmolality and hyponatremia; I11.0 Hypertensive heart disease with heart failure; I50.9 Heart failure, unspecified; E03.9 Hypothyroidism, unspecified; E78.5 Hyperlipidemia, unspecified; J45.909 Unspecified asthma, uncomplicated; F03.90 Unspecified dementia, unspecified severity, without behavioral disturbance, psychotic disturbance, mood disturbance, and anxiety; E09.65 Drug or chemical induced diabetes mellitus with hyperglycemia; E09.40 Drug or chemical induced diabetes mellitus with neurological complications with diabetic neuropathy, unspecified; K59.09 Other constipation; T38.0X5A Adverse effect of glucocorticoids and synthetic analogues, initial encounter; R06.89 Other abnormalities of breathing; R09.02 Hypoxemia; Z11.52 Encounter for screening for COVID-19; Z79.52 Long term (current) use of systemic steroids; Z79.4 Long term (current) use of insulin; Z79.51 Long term (current) use of inhaled steroids; Z79.890 Hormone replacement therapy
CPT/HCPCS: 71046; 74230; 80048; 80053; 81003; 82607; 82746; 82947; 82962; 83036; 83605; 84443; 84484; 85025; 85610; 85730; 87040; 87070; 87449; 87502; 87811; 87899; 92610; 92611; 94640; 96361; 96365; 96375; 97162; 97166; 99285

== ENCOUNTER → 2024-05-21 11:41 | Outpatient (REF) | payer MEDICARE, OTHER, SELFPAY | LOC: WDC 11:41 | DX: Z12.31 Encounter for screening mammogram for malignant neoplasm of breast (principal) | CPT/HCPCS: 77063; 77067 ==

== ENCOUNTER 2024-08-04 13:02 | Inpatient (IN) | payer MEDICARE, OTHER, SELFPAY ==
[2024-08-04] VITALS (8 sets, daily range): BP systolic 101–143; BP diastolic 36–61; BMI 28.7; BMI 27.0
--- NOTE | 2024-08-04 08:06 | ED.GENMED ---
History of Present Illness
General
Chief Complaint: Breathing Problem
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
Time Seen by Provider: 08/04/24 08:00
History of Present Illness
History of Present Illness:
83-year-old female apparently they had checked her oxygen levels this morning which were in the low 80s. Patient only complains of some mild shortness of breath the last few days although denies shortness of breath now. She is however on
supplemental oxygen at this time. Cough is also been noted by the staff. Patient denies chest pain fever abdominal pain vomiting or other complaints
Past History
Past History
ED Past Medical History: CHF, HTN, Hypercholesterolemia, NIDDM and Hypothyroidism
ED Past Surgical History: Gynecological
Review of Systems
Review of Systems
All Other Systems: Not applicable
Constitutional: Denies fever or chills
Phy Exam
Physical Exam
Physical Exam:
GENERAL: Alert and oriented in no apparent distress
EYE: Orbits normal.
NECK: Supple
CARDIAC: Regular rate and rhythm without any obvious murmurs.
LUNGS: Moderate hypoxia. Diffuse coarse rhonchi mostly on expiration
ABDOMEN: Soft, without focal tenderness or distention
NEUROLOGICAL: Alert and oriented , grossly non-focal
SKIN: Warm and dry, no rash or lesion, no discoloration, skin intact.
MUSCULOSKELETAL: No edema,no deformity.Good color
PSYCH: Normal and appropriate interaction.
Scores
Heart Failure Risk
Heart Failure Risk Score: Not Applicable
Sepsis
Sepsis Screening
Sepsis Assessment: Sepsis Ruled Out
Sepsis Screen
Sepsis Screen: Sepsis Ruled Out
Date: 08/04/24
Time: 11:30
Course
Orders/Labs/Results
Orders:
Orders
08/04/24 08:04
Cardiac Monitoring- Treatment ONCE
IV Insert/Care/Rem.- Treatment PRN
O2 Therapy [RESP] Stat
Titrate/Wean O2 to maintain O2 sat greater than (%): 92
08/04/24 08:05
Electrocardiogram (*1) Stat
Reason for Study: Other
Other Reason for Exam: pneumonia
EKG- Treatment ONCE
08/04/24 08:11
Basic Metabolic Panel Urgent
COVID-19 Antigen Urgent
Source: Nasal Swab
Complete Blood Count/With Diff Urgent
NT-proBNP Urgent
Troponin I Urgent
Blood Culture Q30M
ABHAY Source: Blood/Venous
Specimen Description:
Influenza A+B Rapid Molecular Urgent
ABHAY Source: Nasal Swab
Specimen Description:
08/04/24 08:13
Lactic Acid Urgent
Blood Culture Q30M
ABHAY Source: Blood/Venous
Specimen Description:
08/04/24 08:20
Acetaminophen 1000MG/100Ml [Ofirmev] 1,000 mg in 100 ml .ROUTE .STK-MED
08/04/24 08:21
Acetaminophen 1000MG/100Ml [Ofirmev] 1,000 mg IV NOW STA
CXR Port [CR Chest Portable - 1 View] Urgent
Comment:
Reason For Exam: Short of breath/rhonchi/hypoxia
Reason Study Needs to be Portable: Patient Unstable
08/04/24 09:25
Dextrose 50%-Water [Dextrose 50% Syringe] 12.5 grams IV NOW STA
08/04/24 10:25
Oseltamivir Phosphate [Tamiflu] 75 mg PO NOW STA
Abnormal Lab Results
08/04/24 08/04/24 08/04/24
08:11 09:25 09:50
RBC 2.49 L 10^6/uL
(4.20-5.40)
Hgb 9.6 L g/dL
(12.0-16.0)
Hct 27.2 L %
(37.0-47.0)
MCV 109.2 H fL
(81.0-99.0)
MCH 38.6 H pg
(27.0-31.0)
RDW 24.2 H %
(11.5-14.5)
Abs Immat Gran (auto) 0.1 H 10^3/uL
(0-0.05)
Absolute Neuts (auto) 7.8 H 10^3/uL
(1.4-6.5)
Immature Gran % 0.7 H %
(0-0.5)
Neutrophils % 76.4 H %
(42.2-75.2)
Lymphocytes % 16.8 L %
(20.5-51.1)
Carbon Dioxide 31 H mmol/L
(22-30)
BUN 25 H mg/dl
(7-17)
Glucose 59 L mg/dl
(70-99)
POC Glucose 60 L mg/dl 148 H mg/dl
(70-99) (70-99)
08/04/24 08:11
08/04/24 08:11
Vital Signs
Initial and Last Documented VS:
Initial Vital Signs
Temp Pulse Resp Pulse Ox
100.0 F 99 31 88
08/04/24 07:56 08/04/24 07:56 08/04/24 07:56 08/04/24 07:56
Last Documented Vital Signs
Temp Pulse Resp BP Pulse Ox
97.7 F 72 26 115/36 95
08/04/24 09:14 08/04/24 11:00 08/04/24 11:00 08/04/24 11:00 08/04/24 11:00
MDM/Problems Addressed
Differential Diagnosis Includes:
Hypoxia coarse rhonchi low-grade fever. Pneumonia aspiration bronchitis. Workup in progress. Clearly warrants admission. Daughter updated. Previous records reviewed.
*Pulse Oximetry
Patient hypoxic: yes
*EKG
Interpreted by ED Provider?: Yes
Interpretation: abnormal
Comparison EKG: changes noted
Heart Rate: 96
Rate: normal
Rhythm: sinus
[place]: normal axis
Interval: normal interval
QRS Pattern: left vent hypertrophy
Ischemia: non-specific ST changes
*[employer] Interpretation
Rate: normal
Interpretation: normal
Heart Rate: 95
Rhythm: sinus
*Critical Care Note
Total Time (30-74mins, 75-104mins- exclusive of procedures): Not Applicable
Data Reviewed
Review of Other/Old Records Reveals: Labs, Records, Radiology Studies and Discharge Summary
Update Note
Update Note:
Message left with daughter. Positive influenza. Hypoxia. Questionable infiltrate left base. Admit to medicine
ED Attending Note
-
Portions of this chart may have been created with voice recognition software.� Occasional wrong word or��sound alike� substitutions may have occurred due to the inherent limitations of voice recognition software.
Discharge Plan
Departure
Patient Disposition: Admit
Date of Disposition: 08/04/24
Time of Disposition: 09:04
Presentation/result/management discussed w/ accepting MD/DO: Hospitalist
Discharge Problem:
Hypoxia/influenza
Prescriptions:
No Action
furosemide [Lasix] 40 mg Tablet
20 mg PO DAILYPRN PRN (Reason: fluid retention )
acetaminophen [Tylenol] 325 mg Tablet
650 mg PO Q6HPRN PRN (Reason: MILD PAIN)
pravastatin 40 mg Tablet
40 mg PO HS
amlodipine [Norvasc] 5 mg Tablet
5 mg PO DAILY
levothyroxine [Synthroid] 50 mcg Tablet
50 mcg PO DAILY
ferrous sulfate 325 mg (65 mg iron) Tablet
325 mg PO DAILY
insulin lispro 100 unit/mL Insulin Pen
4 sliding scale dose SC AC
escitalopram oxalate [Lexapro] 10 mg Tablet
10 mg PO DAILY
bisacodyl [Dulcolax (bisacodyl)] 10 mg Suppository
10 mg UT DAILYPRN PRN (Reason: IF NO BM AFTR MOM)
cholecalciferol (vitamin D3) [Vitamin D3] 50 mcg (2,000 unit) Tablet
50 mcg PO DAILY
insulin glargine [Lantus U-100 Insulin] 100 unit/mL Solution
12 unit SC BID
magnesium hydroxide [Milk of Magnesia] 400 mg/5 mL Suspension
2,400 mg PO [id number] PRN (Reason: CONSTIPATION)
folic acid 1 mg Tablet
2 mg PO DAILY
risperidone [Risperdal] 1 mg Tablet
1 mg PO HS
losartan 50 mg Tablet
50 mg PO DAILY Qty: 30 0RF
vitamin A 3,000 mcg (10,000 unit) Capsule
3,000 mcg PO DAILY
calcium carbonate [Calcium 500] 500 mg calcium (1,250 mg) Tablet
500 mg PO DAILY
prednisone 10 mg tablet
10 mg PO DAILY
Rx Instructions:
starting 8/16 30mg daily decreasing by 10 mg every 7th day
Referrals:
Ramirez Phillips MD [Family Provider] -
Interventions
Interventions:
*Risk Screen - Suicide Last Done: 08/04/24 07:56
*General Assessment Last Done: 08/04/24 07:56
*Neglect/Abuse Screening Last Done: 08/04/24 07:56
*ED COVID-19 Vaccine History Last Done: 08/04/24 07:56
ED- Cardiac Assessment Last Done: 08/04/24 08:17
ED- Pulmonary Assessment Last Done: 08/04/24 07:56
Discharge Date and Time
Print Language: Finnish
[2024-08-04] MEDS: OFIRMEV 1000 MG IV (08:21)
[2024-08-04 08:46] LABS: Lactic Acid 1.2 mmol/L (0.7-2.0)
[2024-08-04 08:47] LABS: COVID-19 Antigen Negative (Negative)
[2024-08-04 08:50] LABS: Blood Urea Nitrogen 25 mg/dl (7-17); Calcium 9.4 mg/dl (8.4-10.2); Carbon Dioxide 31 mmol/L (22-30); Chloride 101 mmol/L (98-107); Estimated Creatinine Clearance 43 ml/min; Glucose 59 mg/dl (70-99); Potassium 3.8 mmol/L (3.5-5.1); Sodium 140 mmol/L (135-145); eGFR > 60.00
[2024-08-04 08:58] LABS: NT-proBNP 924 pg/ml; Troponin I 0.032 ng/ml
[2024-08-04 09:26] LABS: Glucose - Point of Care 60 mg/dl (70-99)
[2024-08-04] MEDS: DEXTROSE 50% SYRINGE 12.5 GRAMS IV (09:29)
[2024-08-04 09:35] LABS: % Basophils 0.2 % (0-2); % Immature Granulocytes 0.7 % (0-0.5); % Lymphocytes 16.8 % (20.5-51.1); % Monocytes 5.9 % (1.7-9.3); % Neutrophils 76.4 % (42.2-75.2); Absolute Immature Granulocytes 0.1 10^3/uL (0-0.05); Absolute Lymphocytes 1.7 10^3/uL (1.2-3.4); Absolute Monocytes 0.6 10^3/uL (0.1-0.6); Absolute Neutrophils 7.8 10^3/uL (1.4-6.5); Hematocrit 27.2 % (37.0-47.0); Hemoglobin 9.6 g/dL (12.0-16.0); Mean Corp Hgb Conc. 35.3 g/dL (33.0-37.0); Mean Corpuscular Hgb 38.6 pg (27.0-31.0); Mean Corpuscular Volume 109.2 fL (81.0-99.0); Mean Platelet Volume 10.3 fL (7.4-10.4); Nucleated Red Blood Cells % 0.2 %; Platelet Count 161 10^3/uL (130-400); Red Blood Cell Count 2.49 10^6/uL (4.20-5.40); Red Cell Dist. Width 24.2 % (11.5-14.5); White Blood Cell Count 10.3 10^3/uL (4.8-10.8)
[2024-08-04 09:54] LABS: Glucose - Point of Care 148 mg/dl (70-99)
[2024-08-04] MEDS: TAMIFLU 75 MG PO (11:07)
--- NOTE | 2024-08-04 12:13 | HPS.HSE ---
Family Physician
-
Family Physician: Ramirez Phillips MD
Chief Complaint
-
Hypoxia at the nursing facility.
History of Present Illness
Patient is a 83 years old female with senile dementia who presents from nursing facility with concern for hypoxia. Patient is not able to provide reliable history, although according to records at the facility patient was found to be hypoxic with
pulse ox in 80s. On arrival to the emergency room patient was found to be at 88% on room air. She was not in distress upon arrival.
Patient with recent hospitalization for aspiration pneumonia.
Additional workup in the emergency room was relevant that patient was found to be positive for influenza.
Medical History
Past Medical History
Past Medical History: Reports HTN and IDDM
Additional Past Medical History:
Autoimmune hemolytic anemia
Aspiration syndrome
Past Surgical History: Reports None
Social History
Tobacco: Non-smoker
Alcohol: None
Drug: None
Living: Penitentiary
Employment: Retired
Family History
Family History: Not pertinent
Allergies / Home Medications
Allergies reflects when Allergies were last updated in [employer].
Home Medications with original date entered in [employer]
Allergy/Medication List:
Allergies
Allergy/AdvReac Type Severity Reaction Status Date / Time
No Known Allergies Allergy Verified 11/24/23 08:11
Home Medications
acetaminophen 325 mg tablet (Tylenol) 650 mg PO Q6HPRN PRN MILD PAIN 11/24/23
amlodipine 5 mg tablet (Norvasc) 5 mg PO DAILY Blood Pressure 11/24/23
bisacodyl 10 mg rectal suppository (Dulcolax (bisacodyl)) 10 mg SC DAILYPRN PRN IF NO BM AFTR MOM 11/24/23
cholecalciferol (vitamin D3) 50 mcg (2,000 unit) tablet (Vitamin D3) 50 mcg PO DAILY Supplement 11/24/23
escitalopram oxalate 10 mg tablet (Lexapro) 10 mg PO DAILY depression/anxiety 11/24/23
ferrous sulfate 325 mg (65 mg iron) tablet 325 mg PO DAILY Supplement 11/24/23
folic acid 1 mg tablet 2 mg PO DAILY Supplement 11/24/23
furosemide 40 mg tablet (Lasix) 20 mg PO DAILYPRN PRN fluid retention 11/24/23
insulin glargine 100 unit/mL subcutaneous solution (Lantus U-100 Insulin) 12 unit SC BID diabetes 11/24/23
insulin lispro 100 unit/mL subcutaneous pen 4 sliding scale dose SC AC diabetes 11/24/23
levothyroxine 50 mcg tablet (Synthroid) 50 mcg PO DAILY Thyroid 11/24/23
magnesium hydroxide 400 mg/5 mL oral suspension (Milk of Magnesia) 2,400 mg PO [id number] PRN CONSTIPATION 11/24/23
pravastatin 40 mg tablet 40 mg PO HS High Cholesterol 11/24/23
risperidone 1 mg tablet (Risperdal) 1 mg PO HS Mental Health/Anxiety 11/24/23
losartan 50 mg tablet 50 mg PO DAILY #30 tabs 11/27/23
calcium carbonate 500 mg PO DAILY 08/04/24
prednisone 10 mg tablet 10 mg PO DAILY 08/04/24
vitamin A 3,000 mcg (10,000 unit) capsule 3,000 mcg PO DAILY 08/04/24
Review of Systems
-
A 12 point ROS was completed and negative except as noted: Yes
Physical Exam
Vital Signs
Vital Signs
Temp Pulse Resp BP Pulse Ox
97.7 F 72 26 115/36 95
08/04/24 09:14 08/04/24 11:00 08/04/24 11:00 08/04/24 11:00 08/04/24 11:00
Physical Exam
General: Well Developed, Well Nourished and No Apparent Distress
HEENT: NormoCephalic, Moist mucous membranes and Atraumatic
Respiratory: Rhonchi
Cardiac: S1/S2 and Regular Rhythm; No Murmur or Rub
GI: Soft, Non Tender, Non Distended and Normal Bowel Sounds; No Organomegaly
Rectal: Deferred by Provider
Musculoskeletal: No Clubbing, No Cyanosis and No Edema
Skin: No Rash
Neuro: Nonfocal/grossly intact
Laboratory Results
-
08/04/24 08:11
08/04/24 08:11
Laboratory Results
Lactic Acid 1.2 mmol/L (0.7-2.0) 08/04/24 08:13
Troponin I 0.032 ng/ml 08/04/24 08:11
Impression/Plan
-
IMPRESSION:
Acute hypoxic respiratory insufficiency likely multifactorial.
� Influenza bronchitis.
� Aspiration syndrome with risk for aspiration pneumonia/pneumonitis
Other conditions:
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
CHF by history, unspecified
Essential hypertension
Hypothyroidism
Dyslipidemia.
Dementia, senile type
PLAN:
Presented from nursing facility with documented hypoxia.
Not in distress
Acute hypoxic respiratory insufficiency with pulse ox of mid 80s on room air improved with oxygen supplementation at 2 L per
No distress
Exam with coarse bilateral rhonchi
Afebrile
Normal WBC
Mildly elevated pro CHF BNP
Influenza positive
Acute hypoxic respiratory insufficiency likely multifactorial with differential:
� Influenza bronchitis
- Aspiration pneumonitis/pneumonia.
� Less likely decompensated CHF as exam suggestive no volume overload
�Thromboembolism
Check lower extremity Doppler and echocardiogram. Consider CT PE protocol.
Aspiration precautions/speech and swallow evaluation.
Procalcitonin
Tamiflu
Low threshold for antibacterial coverage if ongoing aspiration
Attempt to wean off oxygen as tolerates
Autoimmune hemolytic anemia
On maintenance of prednisone
Hemoglobin at the baseline
IDDM.
Recent hemoglobin A1c 3.5
N.p.o. pending speech and swallow evaluation
Hold standing dose of Lantus/NovoLog pending speech and swallow evaluation
Basal bolus protocol with serial Accu-Cheks
CHF by history.
Essential hypertension
ECG without ischemia
No evidence of volume overload or decompensation.
Noted mild elevated CHF BNP.
Update echocardiogram continue
Continue losartan, amlodipine
Patient is on as needed Lasix for lower extremity edema at the nursing facility
Continue statin
Dementia senile type.
Continue Risperdal and Lexapro
Full code
DVT prophylaxis/heparin
[2024-08-04] MEDS: 0.45%NACL 1000 IV (14:46)
[2024-08-04] MEDS: LEXAPRO 10 MG PO (14:46)
[2024-08-04] MEDS: NORVASC 5 MG PO (14:46)
[2024-08-04 15:03] LABS: Procalcitonin 0.34 ng/ml (0.0-0.25)
[2024-08-04 17:28] LABS: Glucose - Point of Care 125 mg/dl (70-99)
[2024-08-04] MEDS: NOVOLOG FLEXPEN-LOW RESISTANCE SC (17:37)
[2024-08-04 20:59] LABS: Glucose - Point of Care 304 mg/dl (70-99)
[2024-08-04] MEDS: RISPERDAL 1 MG PO (21:13)
[2024-08-04] MEDS: HEPARIN 5000 UNITS SC (21:13)
[2024-08-04] MEDS: TAMIFLU 30 MG PO (21:13)
[2024-08-04] MEDS: PRAVACHOL 40 MG PO (21:13)
[2024-08-05] MEDS: SYNTHROID 50 MCG PO (05:21)
[2024-08-05 07:56] VITALS: BP 133/54
[2024-08-05 08:12] LABS: Glucose - Point of Care 167 mg/dl (70-99)
[2024-08-05] MEDS: TAMIFLU 30 MG PO ×2 (08:29→20:47)
[2024-08-05] MEDS: COZAAR 50 MG PO (08:29)
[2024-08-05] MEDS: FEOSOL 325 MG PO (08:29)
[2024-08-05] MEDS: VITAMIN D3 (cholecalciferol) 50 MCG PO (08:29)
[2024-08-05] MEDS: LEXAPRO 10 MG PO (08:29)
[2024-08-05] MEDS: DELTASONE 10 MG PO (08:29)
[2024-08-05] MEDS: OSCAL CAL 500 500 MG PO (08:30)
[2024-08-05] MEDS: FOLVITE 2 MG PO (08:30)
[2024-08-05] MEDS: NORVASC 5 MG PO (08:30)
[2024-08-05] MEDS: HEPARIN 5000 UNITS SC ×2 (08:30→20:47)
[2024-08-05 09:46] LABS: % Basophils 0.1 % (0-2); % Immature Granulocytes 0.4 % (0-0.5); % Lymphocytes 19.4 % (20.5-51.1); % Monocytes 7.6 % (1.7-9.3); % Neutrophils 72.5 % (42.2-75.2); Absolute Lymphocytes 1.5 10^3/uL (1.2-3.4); Absolute Monocytes 0.6 10^3/uL (0.1-0.6); Absolute Neutrophils 5.7 10^3/uL (1.4-6.5); Hematocrit 21.9 % (37.0-47.0); Hemoglobin 7.7 g/dL (12.0-16.0); Mean Corp Hgb Conc. 35.2 g/dL (33.0-37.0); Mean Corpuscular Hgb 39.5 pg (27.0-31.0); Mean Corpuscular Volume 112.3 fL (81.0-99.0); Mean Platelet Volume 10.3 fL (7.4-10.4); Nucleated Red Blood Cells % 0 %; Platelet Count 140 10^3/uL (130-400); Red Blood Cell Count 1.95 10^6/uL (4.20-5.40); Red Cell Dist. Width 25.7 % (11.5-14.5); White Blood Cell Count 7.9 10^3/uL (4.8-10.8)
[2024-08-05 10:26] VITALS: BMI 26.6
[2024-08-05] MEDS: 0.45%NACL 1000 IV (10:27)
[2024-08-05] MEDS: NOVOLOG FLEXPEN-LOW RESISTANCE 1 UNITS SC (11:27)
--- NOTE | 2024-08-05 12:08 | PTOTSP ---
Dysphagia Eval
Patient with acute on chronic dysphagia risk factors (i.e., AHRF multifactorial from influenza bronchitis and aspiration pneumonitis/PNA; dementia, history of dysphagia/aspiration syndrome).
Video swallow study 11/26/2023 with mild oral stage and moderate pharyngeal dysphagia with aspiration of thin liquids via cup and myranda silent aspiration without a cough response with consecutive drinking of mildly thick liquids via straw.
Recommend:
1. IDDSI Level 6 Soft and Bite Sized, IDDSI Level 2 Mildly Thick Liquids via Single Cup Sips
2. Medications: whole and/or crushed in puree
3. Strategies: upright to 90 degrees, FULL supervision/assistance, NO straws, SINGLE SIPS, slow rate, breaks for breathing
4. Oral care 3x daily
5. Consider repeat instrumental swallowing assessment to objectively assess swallowing and rule out silent aspiration
[2024-08-05 13:19] LABS: Glucose - Point of Care 467 mg/dl (70-99)
[2024-08-05 13:23] LABS: Glucose - Point of Care 449 mg/dl (70-99)
[2024-08-05 14:35] LABS: Glucose 456 mg/dl (70-99)
[2024-08-05] MEDS: NOVOLOG FLEXPEN-LOW RESISTANCE 6 UNITS SC (14:37)
[2024-08-05 15:22] VITALS: BP 121/59
--- NOTE | 2024-08-05 15:56 | W.PN.HOSP.TC ---
Today's Communication/Plan
-
Continue Tamiflu.
Continue aspiration precautions per
Repeat chest x-ray.
Assessment / Plan
Assessment / Plan
IMPRESSION:
Acute hypoxic respiratory insufficiency likely multifactorial.
� Influenza bronchitis.
� Aspiration syndrome with risk for aspiration pneumonia/pneumonitis
Other conditions:
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
CHF by history, unspecified
Essential hypertension
Hypothyroidism
Dyslipidemia.
Dementia, senile type
PLAN:
Presented from nursing facility with documented hypoxia.
Not in distress
Acute hypoxic respiratory insufficiency with pulse ox of mid 80s on room air improved with oxygen supplementation at 2 L per
No distress
Exam with coarse bilateral rhonchi
Afebrile
Normal WBC
Mildly elevated pro CHF BNP
Influenza positive
Chest x-ray with small left lower lobe consolidation
Acute hypoxic respiratory insufficiency likely multifactorial with differential:
� Influenza bronchitis
- Aspiration pneumonitis/pneumonia.
� Less likely decompensated CHF as exam suggestive no volume overload
�Thromboembolism
Lower extremity Doppler negative for DVT
Procalcitonin marginally elevated
Tamiflu.
Follow-up chest x-ray today. If worsening of left lower lobe process, will start antibacterial coverage for aspiration.
Autoimmune hemolytic anemia
On maintenance of prednisone
Hemoglobin at the baseline
IDDM.
Recent hemoglobin A1c 3.5
Diet has been advanced with aspiration precautions
Resume standing dose of insulin: Lantus/NovoLog
Continue basal bolus protocol adjusting accordingly.
CHF by history.
Essential hypertension
ECG without ischemia
No evidence of volume overload or decompensation.
Noted mild elevated CHF BNP.
Update echocardiogram continue
Continue losartan, amlodipine
Patient is on as needed Lasix for lower extremity edema at the nursing facility
Continue statin
Dementia senile type.
Continue Risperdal and Lexapro
Full code
DVT prophylaxis/heparin
Anticipated Discharge: 24 - 48 hours
Subjective/Interval History
-
Date of Service: August 05, 2024
Objective Data
-
Labs:
Laboratory Results
08/05/24 08/05/24
05:40 13:49
WBC 7.9
Hgb 7.7 L
Hct 21.9 L
Plt Count 140
Glucose 456 H*
Vital Signs:
Vital Signs
Temp Pulse Resp BP Pulse Ox
99.9 F 94 18 121/59 94
08/05/24 15:22 08/05/24 15:22 08/05/24 15:22 08/05/24 15:22 08/05/24 15:22
Physical Exam
-
General: Well Developed and No Apparent Distress
HEENT: Normocephalic, Atraumatic and Moist Mucous Membranes
Respiratory: Rhonchi (Course rhonchi)
Cardiac: Regular Rhythm and S1/S2; Negative Murmur, Rub or Gallop
GI: Soft, Nontender, Nondistended and Normal Bowel Sounds; Negative Organomegaly
Rectal: Deferred by Provider
Musculoskeletal: No Clubbing, No Cyanosis and No Edema
Skin: Negative Rash
Neuro: Nonfocal/Grossly Intact
[2024-08-05 16:36] LABS: Glucose - Point of Care 385 mg/dl (70-99)
[2024-08-05 17:49] LABS: Glucose - Point of Care 334 mg/dl (70-99)
[2024-08-05] MEDS: NOVOLOG FLEXPEN 4 UNITS SC (18:45)
[2024-08-05] MEDS: NOVOLOG FLEXPEN-LOW RESISTANCE 4 UNITS SC (18:46)
[2024-08-05] MEDS: RISPERDAL 1 MG PO (21:20)
[2024-08-05] MEDS: PRAVACHOL 40 MG PO (21:20)
[2024-08-05] MEDS: LANTUS 0.12 UNITS SC (21:20)
[2024-08-05 21:21] LABS: Glucose - Point of Care 188 mg/dl (70-99)
--- NOTE | 2024-08-06 00:22 | W.PN.UPDATE ---
Update Note
Progress Note Update
Notified of critical value from lab.
Blood Culture Preliminary 08/05/24-2205
Positive culture in progress
Gram stain of aerobic blood culture bottle reveals
Gram Positive Bacilli
Slide to be reviewed in morning on 08/06/2024 by microbiology tech.
CRITICAL VALUE called to and read back verification by SD on
08/05/24 at 2206 by ORTIZ. COPY PRINTED to printer #[id number] .
Notified of preliminary critical value from lab. Only positive culture in one sample. Patient with no elevation in WBC, afebrile. Possible contamination. Repeat blood cultures ordered. Defer ordering antibiotics to attending provider.
[2024-08-06 01:56] VITALS: BP 139/63
[2024-08-06] MEDS: 0.45%NACL 1000 IV (04:34)
[2024-08-06] MEDS: SYNTHROID 50 MCG PO (05:20)
[2024-08-06 06:00] VITALS: BMI 27.3
[2024-08-06 07:04] LABS: % Immature Granulocytes 0.2 % (0-0.5); % Lymphocytes 28.5 % (20.5-51.1); % Monocytes 7.8 % (1.7-9.3); % Neutrophils 63.5 % (42.2-75.2); Absolute Lymphocytes 1.4 10^3/uL (1.2-3.4); Absolute Monocytes 0.4 10^3/uL (0.1-0.6); Absolute Neutrophils 3.2 10^3/uL (1.4-6.5); Hematocrit 20.8 % (37.0-47.0); Hemoglobin 7.5 g/dL (12.0-16.0); Mean Corp Hgb Conc. 36.1 g/dL (33.0-37.0); Mean Corpuscular Hgb 40.1 pg (27.0-31.0); Mean Corpuscular Volume 111.2 fL (81.0-99.0); Mean Platelet Volume 10.3 fL (7.4-10.4); Nucleated Red Blood Cells % 0 %; Platelet Count 136 10^3/uL (130-400); Red Blood Cell Count 1.87 10^6/uL (4.20-5.40); Red Cell Dist. Width 25.6 % (11.5-14.5)
[2024-08-06 07:16] LABS: Blood Urea Nitrogen 30 mg/dl (7-17); Calcium 8.5 mg/dl (8.4-10.2); Carbon Dioxide 32 mmol/L (22-30); Chloride 103 mmol/L (98-107); Estimated Creatinine Clearance 44 ml/min; Glucose 143 mg/dl (70-99); Sodium 138 mmol/L (135-145); eGFR > 60.00
[2024-08-06] MEDS: LEXAPRO 10 MG PO (07:40)
[2024-08-06] MEDS: TAMIFLU 30 MG PO (07:40)
[2024-08-06] MEDS: FOLVITE 2 MG PO (07:40)
[2024-08-06] MEDS: VITAMIN D3 (cholecalciferol) 50 MCG PO (07:40)
[2024-08-06] MEDS: NORVASC 5 MG PO (07:41)
[2024-08-06] MEDS: FEOSOL 325 MG PO (07:41)
[2024-08-06] MEDS: HEPARIN 5000 UNITS SC (07:42)
[2024-08-06] MEDS: COZAAR 50 MG PO (07:42)
[2024-08-06] MEDS: DELTASONE 10 MG PO (07:42)
[2024-08-06] MEDS: OSCAL CAL 500 500 MG PO (07:42)
[2024-08-06 07:50] VITALS: BP 119/65
[2024-08-06 08:09] LABS: Glucose - Point of Care 182 mg/dl (70-99)
[2024-08-06] MEDS: NOVOLOG FLEXPEN-LOW RESISTANCE 1 UNITS SC (09:53)
[2024-08-06] MEDS: LANTUS 0.12 UNITS SC (09:56)
[2024-08-06] MEDS: NOVOLOG FLEXPEN 4 UNITS SC ×3 (09:56→17:59)
[2024-08-06 11:58] LABS: Glucose - Point of Care 299 mg/dl (70-99)
[2024-08-06] MEDS: NOVOLOG FLEXPEN-LOW RESISTANCE 3 UNITS SC ×2 (12:59→18:01)
[2024-08-06 14:30] LABS: Urine Albumin 1+ (Neg - Trace); Urine Bilirubin Negative (Negative); Urine Character Clear (Clear); Urine Color Yellow; Urine Glucose Negative (Negative); Urine Ketone Negative (Negative); Urine Leukocyte 1+ (Negative); Urine Nitrite Negative (Negative); Urine Occult Blood Negative (Negative); Urine Specific Gravity 1.015 (<1.030); Urine Urobilinogen 1+ (Neg - 1+)
[2024-08-06 14:40] LABS: Urine Squamous Cell >30 /LPF (Few); Urine Uric Acid Crystals Seen
[2024-08-06 14:41] LABS: Urine Bacteria Moderate (Negative); Urine Red Blood Cell 0-2 /HPF (0-2)
--- NOTE | 2024-08-06 15:10 | W.DS.TRANS ---
DC Summary - [employer]
-
Discharge Instructions:
Discharge Diagnosis/Procedures IMPRESSION:
Acute hypoxic respiratory insufficiency likely
multifactorial.
� Influenza bronchitis.
Other conditions:
Autoimmune hemolytic anemia currently on
prednisone maintenance
CHF by history, unspecified
Essential hypertension
Hypothyroidism
Dyslipidemia.
Dementia, senile type
Diet Other diet
Additional Diets Soft bite sized
Instructions:
Stand-Alone Forms:
Changes to Home Medications: No
Discharge Medications:
DC Medications w/original date entered in [employer]
acetaminophen 325 mg tablet (Tylenol) 650 mg PO Q6HPRN PRN MILD PAIN 11/24/23
amlodipine 5 mg tablet (Norvasc) 5 mg PO DAILY Blood Pressure 11/24/23
bisacodyl 10 mg rectal suppository (Dulcolax (bisacodyl)) 10 mg TN DAILYPRN PRN IF NO BM AFTR MOM 11/24/23
cholecalciferol (vitamin D3) 50 mcg (2,000 unit) tablet (Vitamin D3) 50 mcg PO DAILY Supplement 11/24/23
escitalopram oxalate 10 mg tablet (Lexapro) 10 mg PO DAILY depression/anxiety 11/24/23
ferrous sulfate 325 mg (65 mg iron) tablet 325 mg PO DAILY Supplement 11/24/23
folic acid 1 mg tablet 2 mg PO DAILY Supplement 11/24/23
furosemide 40 mg tablet (Lasix) 20 mg PO DAILYPRN PRN fluid retention 11/24/23
insulin glargine 100 unit/mL subcutaneous solution (Lantus U-100 Insulin) 12 unit SC BID diabetes 11/24/23
insulin lispro 100 unit/mL subcutaneous pen 4 sliding scale dose SC AC diabetes 11/24/23
levothyroxine 50 mcg tablet (Synthroid) 50 mcg PO DAILY Thyroid 11/24/23
magnesium hydroxide 400 mg/5 mL oral suspension (Milk of Magnesia) 2,400 mg PO [id number] PRN constipation 11/24/23
pravastatin 40 mg tablet 40 mg PO HS High Cholesterol 11/24/23
risperidone 1 mg tablet (Risperdal) 1 mg PO HS Mental Health/Anxiety 11/24/23
losartan 50 mg tablet 50 mg PO DAILY #30 tabs 11/27/23
calcium carbonate 500 mg PO DAILY Supplement 08/04/24
prednisone 10 mg tablet 10 mg PO DAILY Anti-Inflammatory 08/04/24
vitamin A 3,000 mcg (10,000 unit) capsule 3,000 mcg PO DAILY Supplement 08/04/24
oseltamivir 30 mg capsule 30 mg PO BID #4 caps 08/06/24
Home Medication Changes
Pending Results: No
[2024-08-06 15:42] VITALS: BP 145/80
[2024-08-06] MEDS: 0.45%NACL IV (15:43)
--- NOTE | 2024-08-06 17:57 | CM ---
Pt cleared for discharge to [facility]; Katrina advised can accept back tomorrow, 08/07/2024. CM spoke with pt's daughter, Ana, to make her aware of plan for return to [facility]. IMM reviewed with daughter who provided verbal consent.
Ambulance transport forms on pt chart.
[facility] Report:[phone]
[facility]
== END 2024-08-06 18:22 | DRG 178 ==
LOC: 3 WEST ACU 13:02
PROVIDERS: ADMITTING PHYSICIAN Internal Medicine; EMERGENCY PHYSICIAN Emergency Medicine; FAMILY PHYSICIAN Internal Medicine
DX: J69.0 Pneumonitis due to inhalation of food and vomit (principal); D59.10 Autoimmune hemolytic anemia, unspecified; J10.00 Influenza due to other identified influenza virus with unspecified type of pneumonia; R09.02 Hypoxemia; R06.89 Other abnormalities of breathing; I50.9 Heart failure, unspecified; I11.0 Hypertensive heart disease with heart failure; E11.9 Type 2 diabetes mellitus without complications; F03.90 Unspecified dementia, unspecified severity, without behavioral disturbance, psychotic disturbance, mood disturbance, and anxiety; E03.9 Hypothyroidism, unspecified; Z79.4 Long term (current) use of insulin; Z11.52 Encounter for screening for COVID-19
CPT/HCPCS: 71045; 80048; 81003; 81015; 82947; 82962; 83605; 83880; 84145; 84484; 85025; 87040; 87070; 87086; 87205; 87502; 87811; 92610; 93005; 93306; 93970; 96374; 96375; 99285